=== PATIENT | male | born 1975 | race Asian ===

== ENCOUNTER → 2024-12-25 | Day surgery (SDC) | payer OTHER ==
[~2024-12-25] MED LIST: ATORVASTATIN CA20 MG PO; BUPIVACAINE LIPOSOME/PF 266 MG/20 ML IJ ONE; CIALIS5 MG PO; DEXAMETHASONE SOD PHOS INJ 4 MG/ML SDV ONE; FENTANYL CITRATE/PF 100MCG/2 ML INJ ONE; LIDOCAINE HCL 2% LOCAL INJ 5 ML SDV VIAL INJ ONE; MIDAZOLAM HCL 2 MG/2 ML VIAL ONE; MULTI-VITAMIN1 EACH PO; ONDANSETRON HCL INJ 2MG/ML 2ML 2 MG/ML VIAL ONE; PROPOFOL IV EMULSION 10 MG/ML 20 ML VIAL ONE; TIMOLOL5 ML OP; VALACYCLOVIR500 MG PO; VITAMIN D31250 MCG PO
[2024-12-25 12:32] LABS: EST GLOMERULAR FILTRATION RATE 106.0 ML/MIN (>=60)
[2024-12-25] MEDS: LACTATED RINGER'S 1,000 ML ONE (12:38)
[2024-12-25] MEDS: CEFAZOLIN SODIUM 2 GM ONE (12:38)
[2024-12-25 15:50] VITALS: BP 132/86; PULSE 67; RESP 17; O2SAT 98
== END | disposition home or self-care (01) ==
LOC: OR 10:39
PROVIDERS: ATTEND Podiatrist Foot & Ankle Surgery
DX: M25.872 Other specified joint disorders, left ankle and foot (principal); M76.892 Other specified enthesopathies of left lower limb, excluding foot; S93.492A Sprain of other ligament of left ankle, initial encounter; M77.52 Other enthesopathy of left foot and ankle; E11.9 Type 2 diabetes mellitus without complications; G47.33 Obstructive sleep apnea (adult) (pediatric); E78.5 Hyperlipidemia, unspecified; E66.01 Morbid (severe) obesity due to excess calories; X58.XXXA Exposure to other specified factors, initial encounter; Z79.899 Other long term (current) drug therapy
CPT/HCPCS: 29897; 36415; 80048; 82948; 93005; J0666; J1100; J2003; J2250; J2405; J2704; J3010; J7121